=== PATIENT | female | born 1985 | race Caucasian/White ===

== ENCOUNTER → 2017-05-04 | Outpatient (CLI) | payer OTHER ==
[~2017-05-04] MED LIST: GADAVIST IV PRN
--- NOTE | 2017-05-04 14:26 | DIAGNOSTIC IMAGING REPORT ---
BRAIN COMBO FOR IAC HISTORY: 31 years-old Female S03.00XA TMJ (dislocation of temporomandibular joint)left sided ringing in the left ear status post left-sided dental implant 6 months prior. No hearing loss or trauma. COMPARISON: None available TECHNIQUE: Multiplanar multisequence MRI the brain was obtained both with and without the use of 5.7 mL Gadavist utilizing institutional internal auditory canal protocol FINDINGS: No restricted diffusion to suggest acute ischemia. Midline structures including the corpus callosum, brainstem, optic chiasm, pituitary, and pineal gland are unremarkable in the sagittal T1 sequence. No cerebellar tonsillar herniation. Imaged upper cervical spine is unremarkable. There is no acute intracranial hemorrhage, midline shift, abnormal extra-axial collections, hydrocephalus or intracranial mass. No focal signal abnormalities of the brain parenchyma. There is normal course of the bilateral 7th and 8th cranial nerves. Cisternal portion of the bilateral 5th cranial nerves also appears normal. No cerebellar pontine angle mass. No abnormal enhancement. The imaged flow voids at the level the skull base appear patent. Mastoid air cells are clear. Mild ethmoid sinus disease. IMPRESSION: 1. No acute intracranial abnormality. 2. Normal course of the 7th and 8th cranial nerves without abnormal enhancement. No cerebellar pontine angle mass. 3. Mild ethmoid sinus disease. The above report was generated using voice recognition software. It may contain grammatical, syntax or spelling errors. Electronically signed by: Jean Ocampo M.D. 05/04/2017 2:24 PM Dictated Date/Time: 05/04/2017 2:17 PM
== END | disposition home or self-care (01) ==
LOC: C.MRIBC 12:30
PROVIDERS: ATTEND Physician Assistant
DX: S03.00XA Dislocation of jaw, unspecified side, initial encounter (principal); X58.XXXA Exposure to other specified factors, initial encounter